=== PATIENT | male | born 1990 | race Caucasian/White ===

== ENCOUNTER 2019-01-23 17:23 | Emergency (ER) | payer OTHER ==
[~2019-01-23] VITALS: Ht 170.2 cm; Wt 72.6 kg
[~2019-01-23 17:23] MED LIST: HYDROCODONE-AP1 EAC6 PO; MIRALAX17 GM PO; NOHOMEMEDICATIONS
[2019-01-23] MEDS ORDERED: CENTANY30 GM TOP (17:52)
[2019-01-23 18:14] VITALS: BP 130/77
== END 2019-01-23 18:17 | disposition home or self-care (01) ==
LOC: M.ERS 17:23
DX: S01.81XA Laceration without foreign body of other part of head, initial encounter (principal); F17.200 Nicotine dependence, unspecified, uncomplicated; W22.8XXA Striking against or struck by other objects, initial encounter; Y92.89 Other specified places as the place of occurrence of the external cause; Y93.89 Activity, other specified; Y99.8 Other external cause status

== ENCOUNTER 2019-01-29 13:46 | Emergency (ER) | payer OTHER ==
[~2019-01-29] VITALS: Ht 172.7 cm; Wt 63.5 kg
[~2019-01-29 13:46] MED LIST changes: +CENTANY30 GM TOP
[2019-01-29 13:53] VITALS: BP 115/68
== END 2019-01-29 13:54 | disposition home or self-care (01) ==
LOC: M.ERS 13:46
DX: Z53.1 Procedure and treatment not carried out because of patient's decision for reasons of belief and group pressure (principal)

== ENCOUNTER 2020-09-06 15:52 | Emergency (ER) | payer OTHER ==
[~2020-09-06] VITALS: Ht 167.6 cm; Wt 72.6 kg
[2020-09-06 16:14] LABS: URINE BILIRUBIN NEGATIVE (Negative); URINE BLOOD NEGATIVE (Negative); URINE CLARITY CLEAR; URINE COLOR YELLOW; URINE GLUCOSE-RANDOM NEGATIVE (Negative); URINE KETONES TRACE (Negative); URINE LEUKOCYTES-REFLEX NEGATIVE (Negative); URINE NITRITE-REFLEX NEGATIVE (Negative); URINE PROTEIN TRACE (Negative); URINE SPECIFIC GRAVITY 1.025 (1.005-1.030)
[2020-09-06] MEDS ORDERED: DOXYCYCLINE 10100 MG PO (16:35)
[2020-09-06 17:08] VITALS: BP 125/62
== END 2020-09-06 17:09 | disposition home or self-care (01) ==
LOC: M.ERS 15:52
PROVIDERS: Physician Assistant
DX: Z20.2 Contact with and (suspected) exposure to infections with a predominantly sexual mode of transmission (principal)